=== PATIENT | female | born 1940 | race Caucasian/White ===

== ENCOUNTER 2019-06-19 11:01 | Outpatient (CLI) | payer OTHER | END 2019-06-19 11:11 | disposition home or self-care (01) | LOC: SONOGRAMA 11:01 | DX: C50.812 Malignant neoplasm of overlapping sites of left female breast (principal); N60.12 Diffuse cystic mastopathy of left breast; N60.11 Diffuse cystic mastopathy of right breast ==

== ENCOUNTER 2019-09-15 05:55 | Day surgery (SDC) | payer OTHER ==
[~2019-09-15 05:55] MED LIST: BENTY PO; COZAAR100 MG; DILTIA PO; FORTAMET1000 MG PO; ZOCOR40 MG PO
== END 2019-09-15 17:45 | disposition home or self-care (01) ==
LOC: CIR.AMB 05:55
DX: D05.12 Intraductal carcinoma in situ of left breast (principal)

== ENCOUNTER 2020-08-05 08:23 | Inpatient (IN) | payer OTHER ==
[~2020-08-05] VITALS: Ht 149.9 cm; Wt 72.6 kg
[2020-08-09] MEDS ORDERED: GABAPENTIN600 MG (09:58)
[2020-08-09] MEDS ORDERED: SUCRALFATE1 GM (09:58)
[2020-08-09] MEDS ORDERED: VITAMIN D3125 MC2 (09:58)
[2020-08-09] MEDS ORDERED: PRAVASTATIN SOD40 MG (09:58)
[2020-08-09] MEDS ORDERED: ESOMEPRAZOLE MA20 MG (09:58)
[2020-08-09] MEDS ORDERED: DILTIAZEM 24HR240 MG (09:58)
[2020-08-11] MEDS ORDERED: MIRALAX17 GM PO (09:01)
[2020-08-11] MEDS ORDERED: TYLENOL ARTHRI650 MG PO (09:01)
[2020-08-11] MEDS ORDERED: ULTRAM50 MG PO (09:01)
== END 2020-08-11 10:19 | disposition home or self-care (01) | DRG 330 ==
LOC: SURH 08-08 07:00 → O/R 08-08 11:45 → SURG 08-08 18:47
PROVIDERS: ADMIT Surgery; ATTEND Surgery
PROC: 0WQF4ZZ Repair Abdominal Wall, Percutaneous Endoscopic Approach (ICD-10-PCS; 2020-08-08)
PROC: 0DQN4ZZ Repair Sigmoid Colon, Percutaneous Endoscopic Approach (ICD-10-PCS; principal; 2020-08-08 07:00)
DX: K42.0 Umbilical hernia with obstruction, without gangrene (principal); K91.71 Accidental puncture and laceration of a digestive system organ or structure during a digestive system procedure; K43.2 Incisional hernia without obstruction or gangrene; Y65.8 Other specified misadventures during surgical and medical care; Y92.234 Operating room of hospital as the place of occurrence of the external cause

== ENCOUNTER 2024-08-08 10:00 | Inpatient (IN) | payer OTHER ==
[~2024-08-08] VITALS: Ht 121.9 cm; Wt 68.0 kg
[~2024-08-08 10:00] MED LIST changes: +DILTIAZEM 24HR240 MG; +ESOMEPRAZOLE MA20 MG; +GABAPENTIN600 MG; +MIRALAX17 GM PO; +PRAVASTATIN SOD40 MG; +SUCRALFATE1 GM; +TYLENOL ARTHRI650 MG PO; +ULTRAM50 MG PO; +VITAMIN D3125 MC2
[2024-08-08 10:43] VITALS: BP 143/76
[2024-08-08] MEDS ORDERED: PANTOPRAZOLE SO40 M2 (10:54)
[2024-08-08] MEDS ORDERED: FAMOTIDINE 40MG (10:54)
[2024-08-08] MEDS ORDERED: GABAPENTIN 800 MG (10:54)
[2024-08-08 11:03] LABS: HEMATOCRIT 32.4 % (36.0-45.00); HEMOGLOBIN 10.9 g/dL (12.0-15.00); MEAN CELL VOLUME 92.4 fL (80.00-100.00); MEAN CORPUSCULAR HEMOGLOBIN 30.9 pg (27.00-32.0); MEAN CORPUSCULAR HGB CONC 33.5 g/dl (32.0-36.0); PLATELET COUNT 297 K/uL (150-450); RED BLOOD COUNT 3.51 M/uL (4.00-6.00); RED CELL DISTRIBUTION WIDTH 14.5 % (11.5-14.5)
[2024-08-08 12:16] LABS: RH POSITIVE
[2024-08-15] MEDS ORDERED: VANCOMYCIN HCL 1,000 MG VIAL ONE ×2 (07:03→21:07)
[2024-08-15] MEDS ORDERED: LIDOCAINE HCL 1%/EPINEPHRINE 20ML VIAL IJ ONE (07:03)
[2024-08-15] MEDS ORDERED: BUPIVACAINE HCL/MPF 0.5% 30ML VIAL ONE (07:03)
[2024-08-15] MEDS ORDERED: KETOROLAC TROMETHAMINE 60 MG VIAL IM ONE (07:03)
[2024-08-15] MEDS ORDERED: TRANEXAMIC ACID 100MG/1ML (1000MG) AMPUL IV ONE ×2 (07:04→09:30)
[2024-08-15] MEDS ORDERED: POVIDONE-IODINE 118 ML BOTT TOP ONE (08:25)
[2024-08-15] MEDS ORDERED: MORPHINE SULFATE 4 MG/ML CARTRIDGE IV ONE (09:30)
[2024-08-15] MEDS ORDERED: ONDANSETRON HCL 2 MG/ML VIAL IV PRN (10:00)
[2024-08-15] MEDS ORDERED: SODIUM CHLORIDE 0.45 % 1,000 ML IV SCH (10:00)
[2024-08-15] MEDS ORDERED: MORPHINE SULFATE 4 MG/ML CARTRIDGE IV PRN (10:00)
[2024-08-15] MEDS ORDERED: OxyCODONE HCL 5 MG TABLET (ROXICODONE) PO PRN (10:00)
[2024-08-15] MEDS ORDERED: ACETAMINOPHEN 500 MG GEL..CAP PO SCH (12:00)
[2024-08-15] MEDS ORDERED: ONDANSETRON HCL 2 MG/ML VIAL IV ONE (12:25)
[2024-08-15] MEDS ORDERED: ENALAPRILAT DIHYDRATE 1.25 MG/ML VIAL IV PRN (15:15)
[2024-08-15 16:00] VITALS: BP 120/46; O2SAT 96
[2024-08-15] MEDS ORDERED: GABAPENTIN 300 MG CAPSULE PO SCH (17:00)
[2024-08-15] MEDS ORDERED: FAMOTIDINE/PF 20 MG in 0.9 % SODIUM CHLORIDE 8 ML IV PUSH SCH (21:00)
[2024-08-15] MEDS ORDERED: VANCOMYCIN HCL 1,000 MG in 0.9 % SODIUM CHLORIDE 250 ML IV SCH (21:00)
[2024-08-16 00:55] VITALS: BP 118/44
[2024-08-16 06:47] LABS: HEMATOCRIT 27.9 % (36.0-45.00); HEMOGLOBIN 9.6 g/dL (12.0-15.00); MEAN CELL VOLUME 92.2 fL (80.00-100.00); MEAN CORPUSCULAR HEMOGLOBIN 31.9 pg (27.00-32.0); MEAN CORPUSCULAR HGB CONC 34.6 g/dl (32.0-36.0); PLATELET COUNT 232 K/uL (150-450); RED BLOOD COUNT 3.02 M/uL (4.00-6.00)
[2024-08-16 08:00] VITALS: BP 146/63; O2SAT 95
[2024-08-16] MEDS ORDERED: ELIQUIS2.5 MG PO (08:17)
[2024-08-16] MEDS ORDERED: PERCOCET 5-3251 EACH PO (08:17)
[2024-08-16] MEDS ORDERED: CIPRO500 MG PO (08:17)
[2024-08-16] MEDS ORDERED: SENNOSIDES 1 TAB TABLET PO SCH (09:00)
[2024-08-16] MEDS ORDERED: APIXABAN 2.5 MG TABLET PO SCH (09:00)
[2024-08-16] MEDS ORDERED: DILTIAZEM HCL 240 MG CAP.SR.24H PO SCH (09:00)
[2024-08-16] MEDS ORDERED: LOSARTAN POTASSIUM 100 MG TABLET PO SCH (09:00)
[2024-08-16] MEDS ORDERED: VANCOMYCIN HCL 1,000 MG VIAL IV SCH (09:48)
[2024-08-16] MEDS ORDERED: VANCOMYCIN HCL 1,000 MG VIAL ONE ×2 (09:49→14:43)
[2024-08-16 14:39] LABS: ALBUMIN 3.2 gm/dL (3.4-5.0); BILIRUBIN TOTAL 0.54 mg/dL (0.3-1.2); CALCIUM 8.8 mg/dL (8.5-10.1); CREATININE SERUM 1.04 mg/dL (0.55-1.02); GFR 50.48; GLOBULINA 3.6 G/DL (2.4-3.5); POTASSIUM 4.45 mEq/L (3.5-5.1); TOTAL PROTEIN 6.8 gm/dL (6.4-8.2)
[2024-08-16 19:57] VITALS: BP 123/50; O2SAT 98
[2024-08-17 02:00] VITALS: BP 118/68; O2SAT 91
[2024-08-17 06:56] LABS: HEMOGLOBIN 9.7 g/dL (12.0-15.00); MEAN CELL VOLUME 91.8 fL (80.00-100.00); MEAN CORPUSCULAR HEMOGLOBIN 31.9 pg (27.00-32.0); MEAN CORPUSCULAR HGB CONC 34.8 g/dl (32.0-36.0); PLATELET COUNT 211 K/uL (150-450); RED BLOOD COUNT 3.05 M/uL (4.00-6.00); RED CELL DISTRIBUTION WIDTH 13.8 % (11.5-14.5)
[2024-08-17] MEDS ORDERED: VANCOMYCIN HCL 1,000 MG VIAL ONE ×2 (06:58→16:07)
[2024-08-17 08:00] VITALS: BP 150/67; O2SAT 100
[2024-08-17] MEDS ORDERED: IRON FUM,PS/FOLIC ACID/VITC/B3 1 CAP CAPSULE PO SCH (09:00)
[2024-08-17 17:28] VITALS: BP 161/68; O2SAT 100
== END 2024-08-17 19:35 | DRG 470 ==
LOC: SURG 08-15 05:05 → O/R 08-15 05:05 → SURH 08-15 10:00 → SURG 08-15 12:13
PROVIDERS: ADMIT Orthopaedic Surgery; ATTEND Orthopaedic Surgery
PROC: 0MNN0ZZ Release Right Knee Bursa and Ligament, Open Approach (ICD-10-PCS; 2024-08-15)
PROC: 0SRC0J9 Replacement of Right Knee Joint with Synthetic Substitute, Cemented, Open Approach (ICD-10-PCS; principal; 2024-08-15 11:00)
DX: M17.11 Unilateral primary osteoarthritis, right knee (principal); M22.11 Recurrent subluxation of patella, right knee